=== PATIENT | female | born 1945 | race Caucasian/White ===

== ENCOUNTER 2017-01-29 11:51 | Day surgery (SDC) | payer MEDICARE, OTHER ==
[2017-01-29 12:26] VITALS: BP 135/73; PULSE 78; RESP 14; TEMP 98; O2SAT 98
[2017-01-29 13:10] VITALS: BP 157/80; PULSE 68; RESP 18; TEMP 98.3; O2SAT 97
[2017-01-29] MEDS ORDERED: LIDOCAINE HCL 1% 20 ML VIAL ONE (13:19)
[2017-01-29 13:25] VITALS: BP 142/77; PULSE 61; RESP 18; O2SAT 98
--- NOTE | 2017-01-29 13:38 | RADRPT ---
EXAM DATE/TIME: 01/29/2017 12:25 [place] COMPARISON: No previous studies available for comparison. EXTERNAL COMPARISON: [facility], CT SOFT TISSUE NECK, Jan 23 2017 INDICATIONS : Right thyroid nodule. MEDICAL HISTORY : Hypertension. Hyperglycemia. Osteopenia. Colon cancer. Sinutis. SURGICAL HISTORY : Appendectomy. ENCOUNTER: Subsequent ACUITY: 2 weeks PAIN SCORE: 0/10 LOCATION: Right neck ORGAN: Right chest SPECIMENS: Three fine needle aspirate(s) submitted for pathologic evaluation. DEVICE: 22 gauge needle Post procedure scanning reveals no hematoma or other complication. The possibility does exist that the tissue obtained will be non-diagnostic. If the sample is non-nba gnostic a repeat biopsy or surgical biopsy may need to be performed. TECHNIQUE: 1. Ultrasound guidance for needle biopsy. 2. Needle biopsy. The risks, benefits and alternatives to the procedure were explained and verbal and written consent w as obtained. The site was prepped in sterile fashion. Full sterile technique was used, including ca p, mask, sterile gloves and gown and a large sterile sheet. Hand hygiene and 2% chlorhexidine and/or betadine/alcohol prep was utilized per protocol for cutaneous antisepsis. The skin and subcutaneous tissues were infiltrated with local anesthetic solution. Sterile gel and sterile probe cover were u tilized for ultrasound guidance. With the patient on the ultrasound table, images were obtained. A needle was advanced into the identified target and the number of specimens as above obtained and trejo bmitted for pathologic evaluation. The patient tolerated the procedure well and left the ultrasound suite in stable condition. CONCLUSION: Uncomplicated ultrasound guided needle biopsy. Eber Dejesus MD on January 29, 2017 at 13:36 Board Certified Radiologist. This report was verified electronically.
== END 2017-01-29 13:47 | disposition home or self-care (01) ==
LOC: HRAD 11:51 → HRIP 11:55 → HRAD 13:47
PROVIDERS: ATTEND Family Medicine
DX: E04.1 Nontoxic single thyroid nodule (principal); I10 Essential (primary) hypertension
CPT/HCPCS: 10022; 76942; 88172; 88173